=== PATIENT | male | born 1940 | race Caucasian/White ===

== ENCOUNTER → 2016-06-29 | Day surgery (SDC) | payer MEDICARE, OTHER ==
[~2016-06-29] VITALS: Ht 175.3 cm; Wt 81.6 kg
[~2016-06-29] MED LIST: ACETAMINOPHEN325 MG PO; LEVAQUIN500 MG PO; LOPRESSOR100 MG PO; NORVASC10 MG PO; PERCOCET 7.5-31 EACH PO; TRIAMCINOLONE A15 GM TOP; ZESTRIL40 MG PO
== END | disposition home or self-care (01) ==
LOC: SDC 08:54
DX: N20.0 Calculus of kidney (principal); I10 Essential (primary) hypertension; Z90.49 Acquired absence of other specified parts of digestive tract; Z79.899 Other long term (current) drug therapy; Z88.2 Allergy status to sulfonamides; Z87.442 Personal history of urinary calculi
CPT/HCPCS: C1894; C2617; J1580; J2270; J2704; J3370; J7050; Q9967